=== PATIENT | female | born 1995 | race Asian ===

== ENCOUNTER 2019-04-12 19:56 | Inpatient (IN) | payer MEDICAID ==
[~2019-04-12] VITALS: Ht 170.2 cm; Wt 71.7 kg
[2019-04-12 20:04] VITALS: Ht 170.2 cm; Wt 71.7 kg
--- NOTE | 2019-04-12 20:08 | NUR ---
TOURNIQUET REMOVED AT THIS TIME PER DR OVIEDO VERBAL ORDERS. EMT ZEINA AT BEDSIDE TO HOLD PRESSURE ON SITE PRIOR TO PROCEDURE.
--- NOTE | 2019-04-12 20:16 | NUR ---
DR OVIEDO AT BEDSIDE FOR PROCEDURE.
--- NOTE | 2019-04-12 20:26 | NUR ---
PT BIBA TO ED WITH C/C S/P SELF INFLICTED LACX2 TO LEFT WRIST. PER MEDICS PT WAS AT HOME WHEN SHE HAD AN EMOTIONAL BREAK AND BEGAN TO BREAK GLASS BOWLS IN HER HOME AND TOOK A PIECE OF BROKEN GLASS AND CUT HER LEFT WRIST X2. MEDIC REPORTS UPON ARRIVAL BLOOD WAS SQUIRTING OUT OF LAC SITE AND LACS WERE DEEP X2 AND APPROX 3IN X2. TOURNIQUET WAS APPLIED AT 1930. UPON ARRIVAL PT IS CALM AND COOPERATIVE AND STS SHE DID NOT WANT TO KILL HERSELF AND PT WAS IN AN EMOTIONAL STATE AND WANTED TO "FEEL SOMETHING." PT IS AAOX4. RESP E/U. DENIES PSYCH AND MEDICAL HX. DENIES SI/HI. DENIES TAKING ANY MEDICATION AT HOME. UPON ASSESSMENT, LEFT HAND IS BLUE/PURPLISH IN COLOR. CAP REFILL >5 SECS. PULSES PALP/WEAK. ABLE TO WIGGLE ALL 5 FINGERS. GRANDMOTHER AT BEDSIDE. PT CONNECTED TO FULL MONITOR. 5150 HOLD WRITTEN BY OFFICER Robert DODD AND PLACED IN CHART. PERSONAL BELONGINGS TAKEN AND PLACED IN RADIO ROOM AT THIS TIME. WILL CONTINUE TO CLOSELY MONITOR.
[2019-04-12 20:52] LABS: BASOPHIL % 0.8 % (0-2); PLATELET COUNT 245 x10^3mcL (130-400)
[2019-04-12 20:58] LABS: CALCIUM 8.7 mg/dL (8.5-10.1); CHLORIDE SERUM 108 mmol/L (98-107); CREATININE SERUM 0.6 mg/dL (0.6-1.0); GFR1 > 60 mL/min; GLUCOSE SERUM 122 mg/dL (74-106); POTASSIUM SERUM 3.6 mmol/L (3.5-5.1); SODIUM SERUM 143 mmol/L (136-145)
--- NOTE | 2019-04-12 20:59 | NUR ---
PT ESCORTED TO RESTROOM TO PROVIDE URINE SAMPLE.
[2019-04-12 21:02] LABS: ALBUMIN 3.6 g/dL (3.4-5.0); ALKALINE PHOSPHATASE 89 U/L (46-116); ALT/SGPT 15 U/L (14-59); AST/SGOT 14 U/L (15-37); BILIRUBIN TOTAL 0.37 mg/dL (0.20-1.00); TOTAL PROTEIN, SERUM 7.4 g/dL (6.4-8.2)
[2019-04-12 21:05] LABS: microscopic required? NO
[2019-04-12 21:11] LABS: UA SPECIFIC GRAVITY >=1.030 (1.005-1.035); urine erythrocyte NEGATIVE (NEGATIVE)
[2019-04-12 21:22] LABS: AMPHETAMINE QUAL UR NONE DETECTED (See below)
--- NOTE | 2019-04-12 21:44 | NUR ---
PT COMPLAINING OF PAIN TO LEFT ARM AT THIS TIME. DR OVIEDO AWARE. PT TO RECEIVE 1G TYLENOL.
--- NOTE | 2019-04-13 00:35 | NUR ---
PT REQUESTING MORE PAIN MEDICATION STATING THE TYLENOL DID NOT HELP WITH PAIN.
--- NOTE | 2019-04-13 04:17 | NUR ---
PT RESTING EASY. NAD NOTED. PMSC+ TO LEFT HAND. DRESSING REMAINS INTACT.
--- NOTE | 2019-04-13 05:26 | NUR ---
PT STS ALL NEEDS ATTEDED TO AT THIS TIME. WILL CONTINUE TO MONITOR.
--- NOTE | 2019-04-13 06:57 | NUR ---
PT REMAINS SLEEPING. NAD NOTED.
--- NOTE | 2019-04-13 08:00 | NUR ---
SSLEEPING EASILY AWAKABLE, NO COMPLAINTS, MEDICALLY CLEARED WAITING PLACEMENT FOR PSYCH EVALAUTION SKIN WARM AND DRY TO TOUCH, RESP. EASY BREATH SOUNDS CLEAR. ABDOMEN SOFT ACTIVE BOWEL SOUNDS, APPLIED ANTHROPOLOGIST IN SR NO ECTOPY
--- NOTE | 2019-04-13 12:00 | NUR ---
RESTING IN BED, AWAKE ALERT OREINTED, COOPERATIVE,
--- NOTE | 2019-04-13 19:51 | NUR ---
PT IS RESTING IN BED. AWAKE AND ALERT. COOPERATIVE. STS ALL NEEDS ATTENDED TO AT THIS TIME. WILL CONTINUE TO CLOSELY MONITOR.
--- NOTE | 2019-04-13 22:12 | NUR ---
PT TALKING ON PHONE. AWAKE AND ALERT.
--- NOTE | 2019-04-13 23:33 | NUR ---
PT SITTING UP IN BED. DENIES PAIN. AWAKE AND ALERT.
--- NOTE | 2019-04-14 00:29 | NUR ---
PT NOTED TO BE PLAYING GAMES ON PHONE. NO ACUTE DISTRESS. WILL CONTINUE TO MONITOR.
--- NOTE | 2019-04-14 01:35 | NUR ---
PT IS SLEEPING. RESP E/U. NAD NOTED.
--- NOTE | 2019-04-14 02:29 | NUR ---
PATIENT MOVED TO BED 8. REPORT GIVEN TO NGUYỄN BOLANOS.
--- NOTE | 2019-04-14 02:31 | NUR ---
REPORT RECEIVED FROM CASEY PEPPER RN, I WILL ASSUME FURTHER CARE OF THIS PATIENT.
--- NOTE | 2019-04-14 02:45 | NUR ---
PT IN POSITION OF COMFORT, PT IS AAOX4, NO DISTRESS NOTED, RESP E/U, PT DENIES ANY SI/HI AT THIS TIME. SI PRECAUTIONS IN PLACE, PT IN VIEW OF THE NURSE STATION. WILL CONT TO MONITOR.
--- NOTE | 2019-04-14 04:33 | NUR ---
REPORT GIVEN TO LILLIAN ADRIAN, ON TELE UNIT WHO WILL ASSUME FURTHER CARE OF THIS PATIENT.
[2019-04-14 05:07] VITALS: BP 100/62
--- NOTE | 2019-04-14 05:19 | NUR ---
RECEIVED FROM ER, TRANSPORTED VIA [facility]. AWAKE AND ALERT, ORIENTED TO NAME, PLACE, TIME AND SITUATION. SPEECH CLEAR AND APPROPRIATE. BREATHING EVEN AND UNLABORED ON ROOM AIR. PT ON 5150 HOLD. PT DENIES HAVING SUICIDE THOUGHTS AT THIS TIME. DENIES HAVING AUDITORY OR VISUAL HALLUCINATIONS. CALM AND COOPERATIVE WITH CARE. ADMISSION HISTORY AND ASSESSMENT DONE. PT STATED SHE DOES NOT WANT HER FATHER TO KNOW OF HER ADMISSION. STATED HER GRANDMOTHER KNOWS SHE HAS BEEN BROUGHT TO HOSPITAL. PROVIDED HER FRIENDS NAME AND TELEPHONE PERSON TO NOTIFY. NO IV ACCESS. DRESSING TO LEFT FOREARM CLEAN AND DRY. PHOTODOCUMENTED LACERATIONS TO LEFT FOREARM. ORIENTED TO ROOM ENVIRONMENT, INSTRUCTED ON USE OF CALL LIGHT TO CALL FOR ASSISTANCE, PLACED WITHIN EASY REACH. SITTER IN ROOM.
--- NOTE | 2019-04-14 05:20 | NUR ---
ENDORSED TO NURSE VEDA
--- NOTE | 2019-04-14 05:30 | NUR ---
RECEIVED REPORT FROM NGUYỄN SNYDER. PATIENT IN BED RESTING. SITTER AT BEDSIDE. KRILLEX GAUZE WRAPPED AROUND LEFT FOREARM. DAISHA ATTACHED TO LACERATION. NO SIGNS OR SYMPTOMS OF SWELLING, REDNESS, BLEEDING, OR DISCHARGE. PATIENT DENIES SUICIDAL IDEATIONS OR HALLUCINATIONS AT THE MOMENT. WILL CONTINUE TO MONITOR. CALL LIGHT WITHIN REACH.
[2019-04-14 06:43] LABS: BASOPHIL % 0.4 % (0-2); PLATELET COUNT 224 x10^3mcL (130-400)
[2019-04-14 06:44] LABS: CALCIUM 8.4 mg/dL (8.5-10.1); CARBON DIOXIDE 22.5 mmol/L (21-32); CREATININE SERUM 0.7 mg/dL (0.6-1.0); GFR1 > 60 mL/min; GLUCOSE SERUM 86 mg/dL (74-106)
--- NOTE | 2019-04-14 07:01 | NUR ---
Received change of shift report, will continue to help facilitate placement
--- NOTE | 2019-04-14 07:30 | NUR ---
CONTINUE PLAN OF CARE WTIH PATIENT FROM [facility] SALES MANAGER TO DAY SHIFT. NO SIGNS OF DISTRESS NOTED. SITTER AT BEDSIDE. WILL CONTINUE TO MONITOR. CALL LIGHT WITHIN REACH.
[2019-04-14 08:51] LABS: CHLORIDE SERUM 108 mmol/L (98-107); POTASSIUM SERUM 3.6 mmol/L (3.5-5.1); SODIUM SERUM 142 mmol/L (136-145)
[2019-04-14 09:05] VITALS: BP 100/57
[2019-04-14 13:52] VITALS: BP 98/56
--- NOTE | 2019-04-14 16:00 | NUR ---
Discount pharmacy card and list to low cost medical clinics given to patient by Brian.
[2019-04-14 16:42] VITALS: BP 101/58
--- NOTE | 2019-04-14 18:38 | NUR ---
spoke with Yamileth at [facility] reviewing chart
--- NOTE | 2019-04-14 18:55 | NUR ---
Patient resting in bed. No signs of distress noted. Sitter at bedside. All needs r/t pain, restroom, and ADLs met. No c/o pain. Will endorse to third shift lieutenant RN.
--- NOTE | 2019-04-14 20:02 | NUR ---
SHIFT REASSESSMENT DONE.PATIENT RESTING IN BED,PATIENT 5150 STATUS,SITTER AT BEDSIDE FOR SAFETY.L WRIST LACERATIONS.TELE 17 SR.VERO PREC.VOIDING.NO IV ACCESS.CALL LIGHT IN REACH.
--- NOTE | 2019-04-14 21:27 | NUR ---
NO PM MED AT THIS TIME,CHECKED AT INTERVALS.
[2019-04-14 22:15] VITALS: BP 101/62
--- NOTE | 2019-04-15 01:13 | NUR ---
PATIENT ARM COVERED WITH DRESSING REQUESTED.DAISHA INTACT.NO SIGNS OF INFECTION.
--- NOTE | 2019-04-15 04:44 | NUR ---
UP AMBULATORY RESTROOM,VOIDING.
--- NOTE | 2019-04-15 05:38 | NUR ---
Notified NADEEM ADRIAN no beds at [facility] per [facility] at intake , will endorsed to AM shift to continue to look for placement.
[2019-04-15 06:05] VITALS: BP 98/59; BP 98/89
--- NOTE | 2019-04-15 06:14 | NUR ---
I AND O MEASURED.NO MAJOR CHANGES THIS SHIFT,WILL ENDORSE TO NEXT SHIFT.SITTER AT BEDSIDE.
[2019-04-15 06:37] LABS: BASOPHIL % 0.3 % (0-2); PLATELET COUNT 236 x10^3mcL (130-400)
[2019-04-15 06:47] LABS: CALCIUM 8.6 mg/dL (8.5-10.1); CHLORIDE SERUM 106 mmol/L (98-107); CREATININE SERUM 0.7 mg/dL (0.6-1.0); GFR1 > 60 mL/min; GLUCOSE SERUM 80 mg/dL (74-106); MAGNESIUM 1.8 mg/dL (1.8-2.4); PHOSPHOROUS 4.1 mg/dL (2.5-4.9); POTASSIUM SERUM 3.7 mmol/L (3.5-5.1); SODIUM SERUM 142 mmol/L (136-145)
--- NOTE | 2019-04-15 07:30 | NUR ---
REPORT RECEIVED FROM [employer] ENGINEER RN. PATIENT SLEEPING IN BED. LEFT FOREARM SLEEVE NOTED. NO SIGNS OF DISTRESS. SITTER AT BEDSIDE. WILL CONTINUE TO MONITOR. CALL LIGHT WITHIN REACH.
[2019-04-15 09:22] VITALS: BP 93/63
--- NOTE | 2019-04-15 09:23 | NUR ---
DR. HUTCHINS AND MEDICINE TEAM MADE ROUNDS TO SEE PATIENT. POSSIBLE D/C TODAY. TRANSFER ORDERS TO [facility].
[2019-04-15 11:35] VITALS: BP 104/78
[2019-04-15 13:11] VITALS: BP 112/72
--- NOTE | 2019-04-15 13:27 | NUR ---
[facility] Center aware of discharge from 5150 and psychFerny Tubbs contact the Call Center if further assistance is needed. [phone]
--- NOTE | 2019-04-15 14:30 | NUR ---
PATIENT FOUND IN BED AWAKE, ALERT, AND ORIENTED X 4. FAMILY MEDICINE TEAM DISCONTINUED SITTER AND 5150 HOLD. PATIENT IN STABLE CONDITION. PHOTOGRAPH TAKEN OF PATIENT LEFT FOREARM SELF-INFLICTED WOUNDS WITH DAISHA INTACT, CLEAN, AND DRY. NO SIGNS OF INFECTION NOTED. DISCHARGE PAPERWORK PREPARED AND GIVEN FOR PATIENT. CHILDREN'S MINISTER ASSISTED PATIENT WITH BELONGINGS AND WHEELED PATIENT TO FRONT LOBBY WHERE SHE WAS WAITING FOR HER UBER.
== END 2019-04-15 13:57 | disposition home or self-care (01) | DRG 384 ==
LOC: ED 19:56 → MU 04-14 03:25
PROVIDERS: Emergency Medicine; ADMIT Internal Medicine
PROC: 0HQEXZZ Repair Left Lower Arm Skin, External Approach (ICD-10-PCS; principal; 2019-04-14)
DX: S61.512A Laceration without foreign body of left wrist, initial encounter (principal); E87.8 Other disorders of electrolyte and fluid balance, not elsewhere classified; T14.91XA Suicide attempt, initial encounter; X78.8XXA Intentional self-harm by other sharp object, initial encounter; Y93.89 Activity, other specified; Y92.028 Other place in mobile home as the place of occurrence of the external cause; Z68.22 Body mass index [BMI] 22.0-22.9, adult
CPT/HCPCS: 90715; G0378; G0480; J2001